=== PATIENT | male | born 1950 | race Caucasian/White ===

== ENCOUNTER → 2021-12-29 | Outpatient (CLI) | payer OTHER ==
[2021-12-30 08:14] LABS: COMPLEMENT C3, SERUM 147 mg/dL (82-167); COMPLEMENT C4, SERUM 27 mg/dL (12-38)
[2021-12-30 13:09] LABS: ANTI-DSDNA ANTIBODIES <1 IU/mL (0-9)
[2021-12-31 12:14] LABS: ANTIMYELOPEROXIDASE (MPO) ABS <0.2 units (0.0-0.9); ANTIPROTEINASE 3 (PR-3) ABS <0.2 units (0.0-0.9); ATYPICAL PANCA <1:20 titer (Neg:<1:20); CYTOPLASMIC (C-ANCA) <1:20 titer (Neg:<1:20); PERINUCLEAR (P-ANCA) <1:20 titer (Neg:<1:20)
[2021-12-31 16:14] LABS: ALPHA-1-GLOBULIN 0.3 g/dL (0.0-0.4); BETA GLOBULIN 1.3 g/dL (0.7-1.3); GAMMA GLOBULIN 0.5 g/dL (0.4-1.8); GLOBULIN, TOTAL 3.1 g/dL (2.2-3.9); IMMUNOGLOBULIN A, QN, SERUM 1113 mg/dL (61-437); IMMUNOGLOBULIN G, QN, SERUM 292 mg/dL (603-1613); IMMUNOGLOBULIN M, QN, SERUM 86 mg/dL (20-172); M-SPIKE Not Observed g/dL (Not Observed); PROTEIN, TOTAL, SERUM 6.1 g/dL (6.0-8.5)
== END ==
LOC: LAB 15:29
PROVIDERS: Internal Medicine Nephrology
DX: N04.9 Nephrotic syndrome with unspecified morphologic changes (principal)
CPT/HCPCS: 36415; 80048; 82784; 83520; 84155; 84165; 86038; 86160; 86225; 86256; 86334